=== PATIENT | male | born 1985 | race Two or more races ===

== ENCOUNTER 2021-06-20 15:22 | Emergency (ER) | payer BC ==
[~2021-06-20] VITALS: Ht 165.1 cm; Wt 107.5 kg
== END 2021-06-20 17:46 | disposition home or self-care (01) ==
LOC: ED 15:22
DX: J10.1 Influenza due to other identified influenza virus with other respiratory manifestations (principal); I10 Essential (primary) hypertension; Z20.822 Contact with and (suspected) exposure to COVID-19
CPT/HCPCS: 99283; C9803; U0003